=== PATIENT | male | born 1975 | race African-American/Black ===

== ENCOUNTER 2017-08-30 04:13 | Emergency (ER) | payer BC ==
[2017-08-30 04:38] VITALS: BP 133/85; PULSE 80; TEMP 98; BMI 28.0
--- NOTE | 2017-08-30 04:38 | PDOC ---
History of Present Illness - General Stated Complaint: HARD TO SWALLOW Time Seen by Provider: 08/30/17 04:36 History Source: Patient - History of Present Illness Initial Comments: 08/30/17 05:05 42m with no pmh presents with 3 days of sore throat and difficulty swallowing at night. No sick contacts. 08/30/17 05:11 Past History - Past Medical History Allergies/Adverse Reactions: Allergies Allergy/AdvReac Type Severity Reaction Status Date / Time No Known Allergies Allergy Verified 08/30/17 04:37 Home Medications: Ambulatory Orders NK [No Known Home Medication] 08/30/17 Review of Systems - Review of Systems Able to Perform ROS?: Yes Is the patient limited Israeli proficient: No Constitutional: No: Symptoms Reported HEENTM: Yes: See HPI Respiratory: No: Symptoms reported Cardiac (ROS): No: Symptoms Reported : No: Symptoms Reported Musculoskeletal: No: Symptoms Reported Integumentary: No: Symptoms Reported Neurological: No: Symptoms reported All Other Systems: Reviewed and Negative *Physical Exam - Vital Signs Last Vital Signs Temp Pulse Resp BP Pulse Ox 98.0 F 80 18 133/85 98 08/30/17 04:37 08/30/17 04:37 08/30/17 04:37 08/30/17 04:37 08/30/17 04:37 - Physical Exam General Appearance: Yes: Nourished, Appropriately Dressed. No: Apparent Distress HEENT: positive: EOMI, FELISA, Normal ENT Inspection, Pharyngeal Erythema, Tonsillar Erythema. negative: Tonsillar Exudate Respiratory/Chest: positive: Lungs Clear, Normal Breath Sounds. negative: Chest Tender, Respiratory Distress Cardiovascular: positive: Regular Rhythm, Regular Rate, S1, S2 Gastrointestinal/Abdominal: positive: Normal Bowel Sounds, Flat, Soft. negative : Tender Musculoskeletal: positive: Normal Inspection. negative: CVA Tenderness Extremity: positive: Normal Capillary Refill, Normal Inspection, Normal Range of Motion Integumentary: positive: Normal Color, Dry, Warm Neurologic: positive: Fully Oriented, Alert, Normal Mood/Affect, Normal Response , Motor Strength 5/5 ED Treatment Course - ADDITIONAL ORDERS Additional order review: 08/30/17 05:10 Group A Strep Rapid Antigen - Final Throat - Medications Given in the ED: ED Medications Discontinued Medications Generic Name Dose Route Start Last Admin Trade Name Freq PRN Reason Stop Dose Admin Ibuprofen 800 mg 08/30/17 05:13 08/30/17 05:22 Motrin - PO 08/30/17 05:14 800 mg ONCE ONE Administration Medical Decision Making - Medical Decision Making 08/30/17 05:12 42m with sore throat and difficulty swallowing at night. Sent rapid strep pending. 08/30/17 05:57 Negative rapid strep. *DC/Admit/Observation/Transfer Diagnosis at time of Disposition: Viral pharyngitis - Discharge Dispostion Disposition: HOME Condition at time of disposition: Improved Decision to Admit order: No - Referrals Referrals: Chalo Julien [Primary Care Provider] - - Patient Instructions Printed Discharge Instructions: DI for Viral Pharyngitis Additional Instructions: Follow up with your primary provider within next week if symptoms don't get better. Come back for any new, worsening or concerning symptom. - Post Discharge Activity
--- NOTE | 2017-08-30 05:02 | PDOC ---
Attending Attestation - HPI HPI: 08/30/17 05:09 The patient is a 42 year old male, with no significant past medical history, who presents to the emergency department with, 3 days of a sore throat. The patient reports associated difficulty swallowing at night. He denies any cough of tonsillar exudates. He denies any recent fevers, chills, headache or dizziness. He denies any recent nausea, vomit, diarrhea or constipation. He denies any recent chest pain or shortness of breath. He denies any recent dysuria, frequency, urgency or hematuria. Allergies: NKA Past surgical history: None reported. Social History: Nonsmoker. Denies EtOH use and recreational drug use. Primary Care Physician: Dr. Julien <Amalia Lin - Last Filed: 08/30/17 05:09> - Resident Resident Name: Mendoza Francis - ED Attending Attestation I have performed the following: I have examined & evaluated the patient, The case was reviewed & discussed with the resident, I agree w/resident's findings & plan, Exceptions are as noted - Physicial Exam PE: 09/02/17 20:22 *Physical Exam General Appearance: Yes: Appropriately Dressed. No: Apparent Distress, Intoxicated HEENT: positive: EOMI, FELISA, Normal ENT Inspection, Normal Voice, TMs Normal, Pharynx Normal. negative: Pale Conjunctivae, Photophobia, Scleral Icterus (R), Scleral Icterus (L) Neck: positive: Trachea midline, Normal Thyroid, Supple. negative: Tender, Rigid, Carotid bruit, Stridor, Lymphadenopathy (R), Lymphadenopathy (L), Thyromegaly Respiratory/Chest: positive: Lungs Clear, Normal Breath Sounds. negative: Chest Tender, Respiratory Distress, Accessory Muscle Use, Labored Respiration, RES, Crackles, Rales, Rhonchi, Stridor, Wheezing, Dullness Cardiovascular: positive: Regular Rhythm, Regular Rate, S1, S2. negative: Edema , JVD, Murmur, Bradycardia, Tachycardia Vascular Pulses: Dorsalis-Pedis (R): 2+, Doralis-Pedis (L): 2+ Gastrointestinal/Abdominal: positive: Normal Bowel Sounds, Flat, Soft. negative : Tender, Organomegaly, Pulsatile Mass, Increased Bowel Sounds, Decreased BS, Distended, Guarding, Rebound, Hernia, Hepatomegaly, Spleenomegaly Lymphatic: negative: Adenopathy, Tenderness Musculoskeletal: positive: Normal Inspection. negative: CVA Tenderness, Decreased Range of Motion Extremity: positive: Normal Capillary Refill, Normal Inspection, Normal Range of Motion, Pelvis Stable. negative: Tender, Pedal Edema, Swelling, Erythema Integumentary: positive: Normal Color, Dry, Warm. negative: Cyanotic, Erythema , Jaundice, Rash Neurologic: positive: informatics analyst II-XII NML intact, Fully Oriented, Alert, Normal Mood/ Affect, Motor Strength 5/5. negative: EOM Palsy, Facial Droop, Sensory Deficit - Medical Decision Making 09/02/17 20:20 Pt treated and released <Ole Das - Last Filed: 09/02/17 20:21> Attestations - Attestations 08/30/17 05:10 Documentation prepared by Amalia Lin, acting as medical director occupational health for Ole Das DO. <Amalia Lin - Last Filed: 08/30/17 05:09>
[2017-08-30] MEDS ORDERED: IBUPROFEN 400 MG TABLET (FP) PO ONE ×2 (05:13→05:17)
== END 2017-08-30 06:06 | disposition home or self-care (01) ==
LOC: JER 04:13
DX: J02.9 Acute pharyngitis, unspecified (principal); B97.89 Other viral agents as the cause of diseases classified elsewhere
CPT/HCPCS: 87070; 87430; 99281-25